=== PATIENT | male | born 1985 | race Caucasian/White ===

== ENCOUNTER 2017-01-26 13:44 | Inpatient (IN) | payer OTHER ==
--- NOTE | 2017-01-26 16:21 | PDOC ---
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 The patient additionally notes a right-sided headache throughout the whole head. He notes that his left arm began hurting at 7/10 and the left hand began tingling at 4 pm this Tuesday (two days ago) and has been fluctuating since that time. Yesterday, the right hand started tingling as well and he began having a right-sided headache, but these symptoms have since resolved. He initially took Advil for the arm pain but no other medications. He has never had these symptoms before. His additional recent symptoms are chills, mild dizziness, mild shortness of breath, and for the past few months he has been seeing light spots in his vision which are new for him. He denies any recent falls or injuries, difficulty walking or speaking , or bowel/bladder incontinence. Past History - Past Medical History Allergies/Adverse Reactions: Allergies Allergy/AdvReac Type Severity Reaction Status Date / Time shrimp Allergy Intermediate Swelling Verified 01/27/17 06:38 Home Medications: Ambulatory Orders Amlodipine Besylate [Norvasc -] 10 mg PO DAILY #30 tablet 01/28/17 Metoprolol Tartrate 25 mg PO BID #60 tablet 01/28/17 Other medical history: NONE - Psycho/Social/Smoking Cessation Hx Anxiety: No Suicidal Ideation: No Smoking History: Never smoked Hx Alcohol Use: No Drug/Substance Use Hx: No Substance Use Type: None Review of Systems - Review of Systems Constitutional: Yes: Chills. No: Fever, Unexplained wgt Loss HEENTM: Yes: Recent change in vision (past few months). No: Nose Congestion, Throat Pain Respiratory: Yes: Shortness of Breath (slightly more than normal). No: Cough Cardiac (ROS): No: Chest Pain, Palpitations ABD/GI: No: Constipated, Diarrhea, Nausea, Vomiting : No: Burning, Dysuria Musculoskeletal: Yes: Other (left arm pain). No: Back Pain, Neck Pain Integumentary: No: Bruising, Rash Neurological: Yes: Headache (right), Tingling, Dizziness, Other (no incontinence ). No: Numbness, Weakness, Unsteady Gait Endocrine: No: Unexplained Weight Gain, Unexplained Weight Loss *Physical Exam - Vital Signs Last Vital Signs Temp Pulse Resp BP Pulse Ox 106 H 20 164/125 100 01/26/17 13:45 01/26/17 13:45 01/26/17 13:45 01/26/17 13:45 - Physical Exam General Appearance: Yes: Nourished, Appropriately Dressed, Other (well- appearing Lao-speaking male who is conversive and appears comfortable, moving both arms normally, reclining in hospital bed). No: Apparent Distress HEENT: positive: EOMI, Normal Voice, Hearing Grossly Normal. negative: Scleral Icterus (R), Scleral Icterus (L), Nasal Congestion Neck: positive: Trachea midline, Supple. negative: Tender, Rigid Respiratory/Chest: positive: Lungs Clear, Normal Breath Sounds. negative: Respiratory Distress, Crackles, Rhonchi, Stridor, Wheezing Cardiovascular: positive: Regular Rhythm, Regular Rate. negative: Murmur Gastrointestinal/Abdominal: positive: Normal Bowel Sounds, Soft. negative: Tender, Organomegaly, Pulsatile Mass, Guarding Musculoskeletal: positive: Normal Inspection. negative: Decreased Range of Motion, Vertebral Tenderness Extremity: positive: Normal Capillary Refill, Normal Inspection, Normal Range of Motion. negative: Tender, Cyanosis Integumentary: positive: Normal Color, Dry, Warm. 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 negative: EOM Palsy, Facial Droop, Numbness Heart Score/ECG Review - History History: Slightly suspicious - Electrocardiogram EKG: Normal - Age Age: </= 45 - Risk Factors Based on the list above the patient has:: No risk factors known ED Treatment Course - LABORATORY CBC & Chemistry Diagram: 01/27/17 06:00 01/27/17 06:00 - RADIOLOGY Radiology Studies Ordered: 01/26/17 18:[address] without e/o acute intracranial pathology Medical Decision Making - Medical Decision Making 31 yo male with little recent medical care sent here to the ED for high BP, left arm pain, BUE tingling, right headache. Most likely this is essential HTN, less likely radiculopathy, CVA/TIA, DVT, thoracic outlet syndrome. Ordered is Head CT WO, CBCD, CMP, troponin. Laboratories are unremarkable except for 1+ protein in urine and BUN/Cr of 20/ 1.5. The patient may have TONI which could be attributable to unmanaged HTN. Head CT is unremarkable. Troponin is negative. 01/26/17 19:11 The patient is signed out to the oncoming team awaiting call from Dr. Liz. *DC/Admit/Observation/Transfer Diagnosis at time of Disposition: Hypertension Qualifiers: Qualified Code(s): I10 - Essential (primary) hypertension - Discharge Dispostion Disposition: HOME Condition at time of disposition: Stable Admit: No - Prescriptions
[2017-01-26 17:46] LABS: BASOPHIL 0.6 % (0-2.0); EOSINOPHIL 0.9 % (0-4.5); MCH 29.6 pg (25.7-33.7); MCHC 34.2 g/dl (32.0-35.9); MEAN CELL VOLUME 86.8 fl (80-96); MEAN PLT VOLUME 9.7 fl (7.5-11.1); NEUTROPHILS 77.8 % (42.8-82.8); PLATELET COUNT 170 K/MM3 (134-434); RDW 13.9 % (11.9-15.9); WHITE BLOOD COUNT 9.1 K/mm3 (4.0-10.0)
[2017-01-26] MEDS ORDERED: amLODIPine BESYLATE 5 MG TABLET (FP) PO ONE (18:05)
[2017-01-26] MEDS ORDERED: amLODIPine BESYLATE 5 MG TABLET (FP) ONE (18:14)
[2017-01-26 18:23] LABS: ALBUMIN 3.9 g/dl (3.4-5.0); ANION GAP 8 (8-16); CO2 28 mmol/L (21-32); CREATININE 1.5 mg/dL (0.7-1.3); GLUCOSE,RANDOM 91 mg/dL (74-106); MAGNESIUM 2.1 mg/dL (1.8-2.4); PHOSPHOROUS 2.6 mg/dL (2.5-4.9); SGOT/AST 22 U/L (15-37); SGPT/ALT 40 U/L (12-78)
[2017-01-26 18:27] LABS: ALK PHOS 101 U/L (45-117); BILIRUBIN,TOTAL 1.1 mg/dL (0.2-1.0); TOT PROT 7.7 g/dl (6.4-8.2); TROPONIN I < 0.02 ng/ml (0.00-0.05)
--- NOTE | 2017-01-26 19:39 | PDOC ---
Attending Attestation - Resident Resident Name: JessicaOrquidea - ED Attending Attestation I have performed the following: I have examined & evaluated the patient, The case was reviewed & discussed with the resident, I agree w/resident's findings & plan, Exceptions are as noted - HPI HPI: 01/26/17 19:38 31 M with no known PMH presents to ER with elevated BP. Pt was sent from cardiology clinic for persistently elevated BP, typically 150s to 160s systolic. Pt denies any chest pain but states that he occasionally gets SOB. Also endorses mild headache and paresthesias in both hands. Denies N/V. Denies cocaine or other substance abuse. 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 Pt with occasional SOB but normal EKG. - Labs - EKG - CTH 01/26/17 19:47 Labs notable for TONI with Cr 1.5 Fluids ordered pt to be admitted to hospitalist
[2017-01-26] MEDS ORDERED: SODIUM CHLORIDE 1,000 ML IV STA (19:46)
--- NOTE | 2017-01-26 19:54 | PDOC ---
*Physical Exam - Vital Signs Last Vital Signs Temp Pulse Resp BP Pulse Ox 79 18 160/104 99 01/26/17 18:48 01/26/17 18:48 01/26/17 18:48 01/26/17 18:48 - Physical Exam Comments: 01/26/17 21:39 HEAD: No signs of trauma, normocephalic, atraumatic EYES: PERRLA, EOMI, sclera anicteric, conjunctiva clear ENT: Auricles normal inspection, hearing grossly normal, nares patent, oropharynx clear without exudates. Moist mucosa NECK: Normal ROM, supple, no lymphadenopathy, JVD, or masses LUNGS: No distress, speaks full sentences, clear to auscultation bilaterally HEART: Regular rate and rhythm, normal S1 and S2, no murmurs, rubs or gallops, peripheral pulses normal and equal bilaterally. ABDOMEN: Soft, nontender, normoactive bowel sounds. No guarding, no rebound. No masses EXTREMITIES: Normal inspection, Normal range of motion, no edema. No clubbing or cyanosis. NEUROLOGICAL: Cranial nerves II through XII grossly intact. Normal speech, normal gait, no focal sensorimotor deficits SKIN: Warm, Dry, normal turgor, no rashes or lesions noted. ED Treatment Course - LABORATORY CBC & Chemistry Diagram: 01/26/17 17:22 01/26/17 17:22 - ADDITIONAL ORDERS Additional order review: Laboratory Results 01/26/17 17:22 Sodium 140 Potassium 3.9 Chloride 104 Carbon Dioxide 28 Anion Gap 8 BUN 20 H Creatinine 1.5 H Creat Clearance w eGFR 55.33 Random Glucose 91 Calcium 9.0 Phosphorus 2.6 Magnesium 2.1 Total Bilirubin 1.1 H AST 22 ALT 40 Alkaline Phosphatase 101 Troponin I < 0.02 Total Protein 7.7 Albumin 3.9 01/26/17 17:22 RBC 5.63 H MCV 86.8 MCHC 34.2 RDW 13.9 MPV 9.7 Neutrophils % 77.8 Lymphocytes % 16.6 Monocytes % 4.1 Eosinophils % 0.9 Basophils % 0.6 - Medications Given in the ED: ED Medications Discontinued Medications Generic Name Dose Route Start Last Admin Trade Name Freq PRN Reason Stop Dose Admin Amlodipine Besylate 5 mg 01/26/17 18:05 01/26/17 18:15 Norvasc - PO 08/30/17 18:06 5 mg ONCE ONE Administration Medical Decision Making - Medical Decision Making 01/26/17 21:40 31 yo M with h/o gastritis who presents with WHITT. Pt. reports new onset WHITT and left arm numbness/tingling, and pain. 24 hour duration of right sided WHITT and right arm parastehsias. LUE complaints within past 72 hours. No other associated complaints. Arrived to the ED with elevated BP 160's SBP. Physical exam beingn. Denies h/o drug use. Received handoff from Dr. Lopez. 01/26/17 21:40 ED Course: 01/26/17 21:45 CBC: Unremarkable CMP:BUN/Cr 20/1.5 CT HEAD: No acute intracranial pathology. 01/26/17 21:45 Admit to hospitalist hallie for TONI. *DC/Admit/Observation/Transfer Diagnosis at time of Disposition: Hypertension Qualifiers: Hypertension type: unspecified Qualified Code(s): I10 - Essential (primary) hypertension - Discharge Dispostion Admit: Yes
--- NOTE | 2017-01-26 21:40 | HP ---
CHIEF COMPLAINT: sent from clinic at [facility] for HTN, c/o left arm pain PCP: clinic HISTORY OF PRESENT ILLNESS: This is a 31 year old male with a past medical history of gastritis who presented to the ED from the clinic with left arm pain since Tuesday and elevated BP. He reports feeling a little better now. Only c/o headache. Pt reports that he has been taking an "all natural supplement from the internet" for his BP. ER course was notable for: (1) BP 164/125, given norvasc 5mg (2) CT head neg (3) Cr 1.5, unknown baseline Recent Travel: pt denies PAST MEDICAL HISTORY: Gastritis PAST SURGICAL HISTORY: pt denies Social History: Smoking: pt denies Alcohol: previous heavy drinker, quit a few months ago Drugs: pt denies Family History: mother alive, with HTN Maternal uncle with HTN father alive and well, no PMH Allergies No Known Allergies Allergy (Verified 01/26/17 13:49) HOME MEDICATIONS: 3 Medication Instructions Recorded NK [No Known Home Medication] 01/26/17 REVIEW OF SYSTEMS CONSTITUTIONAL: Absent: fever, chills, diaphoresis, generalized weakness, malaise, loss of appetite, weight change HEENT: Absent: rhinorrhea, nasal congestion, throat pain, throat swelling, difficulty swallowing, mouth swelling, ear pain, eye pain, visual changes CARDIOVASCULAR: Absent: chest pain, syncope, palpitations, irregular heart rate, lightheadedness , peripheral edema RESPIRATORY: Absent: cough, shortness of breath, dyspnea with exertion, orthopnea, wheezing, stridor, hemoptysis GASTROINTESTINAL: Absent: abdominal pain, abdominal distension, nausea, vomiting, diarrhea, constipation, melena, hematochezia GENITOURINARY: Absent: dysuria, frequency, urgency, hesitancy, hematuria, flank pain, genital pain MUSCULOSKELETAL: Present: left arm and left shoulder blade pain Absent: myalgia, arthralgia, joint swelling, back pain, neck pain SKIN: Absent: rash, itching, pallor HEMATOLOGIC/IMMUNOLOGIC: Absent: easy bleeding, easy bruising, lymphadenopathy, frequent infections ENDOCRINE: Absent: unexplained weight gain, unexplained weight loss, heat intolerance, cold intolerance NEUROLOGIC: Present: tingling in hands, headache Absent: focal weakness or paresthesias, dizziness, unsteady gait, seizure, mental status changes, bladder or bowel incontinence PSYCHIATRIC: Absent: anxiety, depression, suicidal or homicidal ideation, hallucinations. PHYSICAL EXAMINATION Vital Signs - 24 hr 3 01/26/17 01/26/17 01/26/17 13:45 18:48 21:02 Pulse Rate 106 H Pulse Rate [ 79 82 Apical] Respiratory 20 18 16 Rate Blood Pressure 164/125 Blood Pressure 160/104 168/102 [Arm] O2 Sat by Pulse 100 99 100 Oximetry (%) GENERAL: Awake, alert, and fully oriented, in no acute distress. HEAD: Normal with no signs of trauma. EYES: Pupils equal, round and reactive to light, extraocular movements intact, sclera anicteric, conjunctiva clear. No lid lag. EARS, NOSE, THROAT: Ears normal, nares patent, oropharynx clear without exudates. Moist mucous membranes. NECK: Normal range of motion, supple without lymphadenopathy, JVD, or masses. LUNGS: Breath sounds equal, clear to auscultation bilaterally. No wheezes, and no crackles. No accessory muscle use. HEART: Regular rate and rhythm, normal S1 and S2 without murmur, rub or gallop. ABDOMEN: Soft, nontender, not distended, normoactive bowel sounds, no guarding, no rebound, no masses. No hepatomegaly or splenomegaly. MUSCULOSKELETAL: Normal range of motion at all joints. No bony deformities or tenderness. No CVA tenderness. UPPER EXTREMITIES: 2+ pulses, warm, well-perfused. No cyanosis. No clubbing. No peripheral edema. LOWER EXTREMITIES: 2+ pulses, warm, well-perfused. No calf tenderness. No peripheral edema. NEUROLOGICAL: Cranial nerves II-XII intact. Normal speech. Normal gait. PSYCHIATRIC: Cooperative. Good eye contact. Appropriate mood and affect. SKIN: Warm, dry, normal turgor, no rashes or lesions noted, normal capillary refill. Laboratory Results - last 24 hr 3 01/26/17 01/26/17 17:22 17:22 WBC 9.1 RBC 5.63 H Hgb 16.7 Hct 48.8 MCV 86.8 MCH 29.6 MCHC 34.2 RDW 13.9 Plt Count 170 MPV 9.7 Neutrophils % 77.8 Lymphocytes % 16.6 Monocytes % 4.1 Eosinophils % 0.9 Basophils % 0.6 Sodium 140 Potassium 3.9 Chloride 104 Carbon Dioxide 28 Anion Gap 8 BUN 20 H Creatinine 1.5 H Creat Clearance w eGFR 55.33 Random Glucose 91 Calcium 9.0 Phosphorus 2.6 Magnesium 2.1 Total Bilirubin 1.1 H AST 22 ALT 40 Alkaline Phosphatase 101 Troponin I < 0.02 Total Protein 7.7 Albumin 3.9 ECG NSR, vent rate 78 QTC 424 flattening T waves in lead 3, no other ST/T changes Radiology Results Cranial CT without contrast Clinical information: headache Multiplanar imaging was performed. There is no CT evidence of intracranial hemorrhage. No extra-axial fluid collection is noted. There is no gross mass lesion. No discrete infarct is identified. The ventricles and cisterns appear unremarkable. No calvarial defect is seen. The partially imaged mastoid air cells and paranasal sinuses demonstrate no opacification. Impression: Negative exam. No discrete noncontrast CT abnormality is identified. Reported By: Kee Lockwood MD 01/26/17 7039 ASSESSMENT/PLAN: 31yM with PMH gastritis presented to ED with left arm and shoulder blade pain. Sent by clinic for HTN. Pt is admitted for further observation. HTN - start amlodipine, BP improved slightly with same. - if BP still elevated in AM, consider adding additional agent or increasing dose - lifestyle modifications dw patient including diet and exercise. Left arm/shoulder blade pain - troponin neg and as pain has been present x 4 days, highly unlikely ACS, will repeat troponin x 1 in am TONI - Cr 1.5. Unknown baseline. Likely due to uncontrolled HTN. - will obtain renal sono - u/a pending. - if cr persistently elevated will need outpatient renal f/u. DVT PPX - deferred, expected LOS <48h FEN - defer IVF, pt tolerating po - repeat bmp, mg, ph in am - low sodium diet Dispo: Pt currently requires inpatient monitoring of his emergent condition. Visit type - Emergency Visit Emergency Visit: Yes ED Registration Date: 01/26/17 Care time: The patient presented to the Emergency Department on the above date and was hospitalized for further evaluation of their emergent condition. - New Patient This patient is new to me today: Yes Date on this admission: 01/26/17 - Critical Care Critical Care patient: No
[2017-01-26 22:19] LABS: URINE APPEARANCE CLEAR; URINE BILIRUBIN NEGATIVE (NEGATIVE); URINE BLOOD NEGATIVE (NEGATIVE); URINE COLOR STRAW; URINE GLUCOSE (UA) NEGATIVE (NEGATIVE); URINE KETONE NEGATIVE (NEGATIVE); URINE LEUK ESTERASE NEGATIVE (NEGATIVE); URINE NITRITE NEGATIVE (NEGATIVE); URINE UROBILINOGEN NEGATIVE mg/dL (0.2-1.0)
[2017-01-26 22:36] LABS: URINE PROTEIN 2+ (NEGATIVE)
[2017-01-26 22:39] LABS: URINE RBC <1 /hpf (0-3); URINE WBC 1 /hpf (3-5)
[2017-01-27 06:49] VITALS: BMI 27.3
[2017-01-27 07:13] LABS: BASOPHIL 0.7 % (0-2.0); EOSINOPHIL 4.1 % (0-4.5); MCH 29.7 pg (25.7-33.7); MCHC 33.6 g/dl (32.0-35.9); MEAN CELL VOLUME 88.1 fl (80-96); MEAN PLT VOLUME 9.7 fl (7.5-11.1); NEUTROPHILS 60.1 % (42.8-82.8); PLATELET COUNT 156 K/MM3 (134-434); RDW 13.6 % (11.9-15.9); WHITE BLOOD COUNT 8.9 K/mm3 (4.0-10.0)
[2017-01-27 07:34] LABS: ANION GAP 9 (8-16); CALCIUM 8.9 mg/dL (8.5-10.1); CO2 26 mmol/L (21-32); CREATININE 1.5 mg/dL (0.7-1.3); GLUCOSE,RANDOM 86 mg/dL (74-106); MAGNESIUM 2.2 mg/dL (1.8-2.4); PHOSPHOROUS 2.9 mg/dL (2.5-4.9)
[2017-01-27 07:40] LABS: CPK 151 IU/L (39-308); TROPONIN I < 0.02 ng/ml (0.00-0.05)
--- NOTE | 2017-01-27 08:33 | CON.CARD ---
Cardiology Consult (text) - Consultation Consultation Note: CC: Admitted from my office for HTN, 160/110 and headaches HPI: 31 M with no PMH, non-smoker who made an appointment to see me in office yesterday concerned about his BP. He stated his BP has been elevated and he had been experiencing headaches. Two days ago he experienced tingling and transient numbness of his left hand. Denied chest pain, SOB, palps, PND, orthopnea. Neurologic deficits were resolved. MEDS: None ALL: shrimp, no home meds. No suppliments FH: mother with HTN Physical Exam BP: 140/95 S1-2. RRR. No murmurs Chest: Clear b/l Abd: soft, NT Ext: no edema Labs: reviewed, significant for creatinine 1.5 ECG: NSR 78bpm, LAE. Head CT: No acute pathology. IMP: Chronic, uncontrolled HTN CKD REC: 1. Increase Amlodipine to 10mg daily with hold parameters 2. Renal consult. If BP remains improved, can likely discharge later today with Rx for Amlodipine and close outpatient f/u. Will hold on BLAS until creatinine baseline established.
[2017-01-27] MEDS ORDERED: amLODIPine BESYLATE 10 MG TABLET (FP) PO SCH (10:00)
[2017-01-27] MEDS ORDERED: amLODIPine BESYLATE 5 MG TABLET (FP) PO SCH (10:00)
--- NOTE | 2017-01-27 11:11 | EKG ---
Test Reason : Blood Pressure : / mmHG Vent. Rate : 078 BPM Atrial Rate : 078 BPM P-R Int : 146 ms QRS Dur : 076 ms QT Int : 372 ms P-R-T Axes : 054 076 034 degrees QTc Int : 424 ms NORMAL SINUS RHYTHM POSSIBLE LEFT ATRIAL ENLARGEMENT BORDERLINE ECG NO PREVIOUS ECGS AVAILABLE Confirmed by CJ WEBB, LC ([id number]) on 01/27/2017 11:11:18 AM Referred By: Confirmed By:LC CORONA MD
--- NOTE | 2017-01-27 15:44 | EKG ---
Test Reason : Blood Pressure : / mmHG Vent. Rate : 111 BPM Atrial Rate : 111 BPM P-R Int : 140 ms QRS Dur : 076 ms QT Int : 318 ms P-R-T Axes : 054 096 039 degrees QTc Int : 432 ms SINUS TACHYCARDIA RIGHTWARD AXIS BORDERLINE ECG WHEN COMPARED WITH ECG OF 26-JAN-2017 18:40, NONSPECIFIC T WAVE ABNORMALITY NO LONGER EVIDENT IN ANTERIOR LEADS Confirmed by CJ WEBB, LC ([id number]) on 01/27/2017 3:44:38 PM Referred By: NASH LANGLEY Confirmed By:LC CORONA MD
--- NOTE | 2017-01-27 16:54 | CONSULT ---
Consult Consult Specialty:: Nephrology Reason for Consultation:: CKD - History of Present Illness Chief Complaint: sent in for HTN History of Present Illness: Pt is a 31 year old male with no past medical history. He says he went to see cardio as he felt his blood pressure was elevated. He was found to be hypertensive and sent in to the hospital. He says he had headaches and that triggered him to think of his blood pressure. He denies chest pain. He was found to have elevated creatinine and I was called to see him. He says he feels anxious. He denies dysuria or hematuria. He says he has an uncle that has kidney disease but could not elaborate more. He denies nsaid use. - History Source History Provided By: Patient - Past Medical History Cardio/Vascular: Yes: HTN - Alcohol/Substance Use Hx Alcohol Use: No - Smoking History Smoking history: Never smoked Home Medications - Allergies Allergies/Adverse Reactions: Allergies Allergy/AdvReac Type Severity Reaction Status Date / Time shrimp Allergy Intermediate Swelling Verified 01/27/17 06:38 - Home Medications Home Medications: Ambulatory Orders NK [No Known Home Medication] 01/26/17 Family Disease History - Family Disease History Other Family History: uncle has kidney disease Review of Systems - Review of Systems Constitutional: reports: No Symptoms, Malaise Eyes: reports: No Symptoms HENT: reports: No Symptoms Neck: reports: No Symptoms Cardiovascular: reports: No Symptoms Respiratory: reports: No Symptoms Gastrointestinal: reports: No Symptoms Genitourinary: reports: No Symptoms Musculoskeletal: reports: No Symptoms Neurological: reports: Headache Endocrine: reports: Increased Thirst Hematology/Lymphatic: reports: No Symptoms Psychiatric: reports: Anxiety Physical Exam Vital Signs: Vital Signs Temperature 99.4 F 01/27/17 14:54 Pulse Rate 119 H 01/27/17 14:39 Respiratory Rate 18 01/27/17 14:57 Blood Pressure 157/96 01/27/17 14:39 O2 Sat by Pulse Oximetry (%) 100 01/27/17 14:57 Constitutional: Yes: Anxious Eyes: Yes: Conjunctiva Clear HENT: Yes: Atraumatic Neck: Yes: Supple Cardiovascular: Yes: S1, S2 Respiratory: Yes: CTA Bilaterally Gastrointestinal: Yes: Normal Bowel Sounds, Soft Renal/: Yes: WNL Musculoskeletal: Yes: WNL Edema: No Neurological: Yes: Oriented Psychiatric: Yes: Oriented Labs: CBC, BMP 01/27/17 06:00 01/27/17 06:00 Laboratory Tests 01/26/17 01/26/17 01/26/17 17:22 17:22 21:54 WBC 9.1 Hgb 16.7 Plt Count 170 Sodium Potassium Chloride Carbon Dioxide Anion Gap BUN 20 H Creatinine 1.5 H Urine Color Straw Urine Appearance Clear Urine pH 6.0 Ur Specific [place] Pending Urine Protein 2+ H Urine Glucose (UA) Negative Urine Ketones Negative Urine Blood Negative Urine Nitrite Negative Urine Bilirubin Negative Urine Urobilinogen Negative Ur Leukocyte Esterase Negative Urine RBC <1 Urine WBC 1 01/27/17 01/27/17 06:00 06:00 WBC 8.9 Hgb 16.7 Plt Count 156 Sodium 142 Potassium 3.8 Chloride 107 Carbon Dioxide 26 Anion Gap 9 BUN 23 H Creatinine 1.5 H Urine Color Urine Appearance Urine pH Ur Specific [place] Urine Protein Urine Glucose (UA) Urine Ketones Urine Blood Urine Nitrite Urine Bilirubin Urine Urobilinogen Ur Leukocyte Esterase Urine RBC Urine WBC Imaging - Results Chest X-ray: Report Reviewed Ultrasound: Report Reviewed (small and echogenic kidneys) Problem List - Problems (1) Hypertension Code(s): I10 - ESSENTIAL (PRIMARY) HYPERTENSION Qualifiers: Hypertension type: unspecified Qualified Code(s): I10 - Essential ( primary) hypertension (2) CKD (chronic kidney disease) Code(s): N18.9 - CHRONIC KIDNEY DISEASE, UNSPECIFIED Assessment/Plan Current Medications Generic Name Dose Route Start Last Admin Trade Name Freq PRN Reason Stop Dose Admin Amlodipine Besylate 10 mg 01/27/17 10:00 01/27/17 11:29 Norvasc - PO 10 mg DAILY LIDIA Administration Impression 1. HTN 2. CKD based on ultrasound 3. proteinuria Plan - pt has a ua that is positive for protein. He also has echogenic kidneys on renal ultrasoun. Pt will need a CKD workup, which can be done as outpt. He will likely also need a biopsy. 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
--- NOTE | 2017-01-27 18:19 | CON.NEURO ---
Consult - History of Present Illness History of Present Illness: 31 year old male with a past medical history of gastritis who presented to the ED from the clinic with left arm pain since Tuesday and elevated BP. He reports feeling a little better now. Only c/o headache. Pt reports that he has been taking an "all natural supplement from the internet" for his BP. brief numbness of his legs x 3 min today, but main issue appaers to be left arm pian --though this is also better team ARBOLEDA fluctuating BP CT HD (-); - History Source History Provided By: Patient, Family Member - Past Medical History Cardio/Vascular: Yes: HTN - Alcohol/Substance Use Hx Alcohol Use: No - Smoking History Smoking history: Never smoked Home Medications - Allergies Allergies/Adverse Reactions: Allergies Allergy/AdvReac Type Severity Reaction Status Date / Time shrimp Allergy Intermediate Swelling Verified 01/27/17 06:38 - Home Medications Home Medications: Ambulatory Orders NK [No Known Home Medication] 01/26/17 Family Disease History - Family Disease History Other Family History: uncle has kidney disease Physical Exam-Neuro Vital Signs: Vital Signs Temperature 99.4 F 01/27/17 14:54 Pulse Rate 119 H 01/27/17 14:39 Respiratory Rate 18 01/27/17 14:57 Blood Pressure 157/96 01/27/17 14:39 O2 Sat by Pulse Oximetry (%) 100 01/27/17 14:57 Constitutional: Yes: Well Nourished, No Distress Labs: Vital Signs CBCD WBC 8.9 K/mm3 (4.0-10.0) 01/27/17 06:00 RBC 5.64 M/mm3 (4.00-5.60) H 01/27/17 06:00 Hgb 16.7 GM/dL (11.7-16.9) 01/27/17 06:00 Hct 49.7 % (35.4-49) H 01/27/17 06:00 MCV 88.1 fl (80-96) 01/27/17 06:00 MCHC 33.6 g/dl (32.0-35.9) 01/27/17 06:00 RDW 13.6 % (11.9-15.9) 01/27/17 06:00 Plt Count 156 K/MM3 (134-434) 01/27/17 06:00 MPV 9.7 fl (7.5-11.1) 01/27/17 06:00 CMP Sodium 142 mmol/L (136-145) 01/27/17 06:00 Potassium 3.8 mmol/L (3.5-5.1) 01/27/17 06:00 Chloride 107 mmol/L (98-107) 01/27/17 06:00 Carbon Dioxide 26 mmol/L (21-32) 01/27/17 06:00 Anion Gap 9 (8-16) 01/27/17 06:00 BUN 23 mg/dL (7-18) H 01/27/17 06:00 Creatinine 1.5 mg/dL (0.7-1.3) H 01/27/17 06:00 Creat Clearance w eGFR 55.33 (>60) 01/26/17 17:22 Calcium 8.9 mg/dL (8.5-10.1) 01/27/17 06:00 Total Bilirubin 1.1 mg/dL (0.2-1.0) H 01/26/17 17:22 AST 22 U/L (15-37) 01/26/17 17:22 ALT 40 U/L (12-78) 01/26/17 17:22 Alkaline Phosphatase 101 U/L (45-117) 01/26/17 17:22 Total Protein 7.7 g/dl (6.4-8.2) 01/26/17 17:22 Albumin 3.9 g/dl (3.4-5.0) 01/26/17 17:22 - Neuro Exam Level Of Consciousness: Yes: Alert, Oriented to Person (EOMI, no facial, motor no focal weakness, sesn intact PT, reflexes symmetric ) Problem List - Problems (1) Hypertension Code(s): I10 - ESSENTIAL (PRIMARY) HYPERTENSION Qualifiers: Hypertension type: unspecified Qualified Code(s): I10 - Essential ( primary) hypertension (2) Cervical radicular pain Code(s): M54.12 - RADICULOPATHY, CERVICAL REGION Assessment/Plan uncontrolled hypertension being ARBOLEDA by primary team left sided neck strain and numbness may be cardiac vs cervical radiculopathy-- can get MRI C spine while in house no evidence of a myelopathy or a progressive neuropathy Dr Haider
--- NOTE | 2017-01-27 18:51 | PN ---
Physical Exam: SUBJECTIVE: Patient seen and examined. He complaints of head ache, neck tension , RUE tingling. He had bi lateral lower ext tingling early briefly. OBJECTIVE: Vital Signs Period Temp Pulse Resp BP Sys/Etienne Pulse Ox Last 24 Hr 98.1 F 113 18 155/96 PE Neuro: alert, awake, cn 2-12intact Pulm: CTAB CV: s1 s2 tachycardia Abd s nt nd + bs Ext: warm no le edema Active Medications Generic Name Dose Route Start Last Admin Trade Name Freq PRN Reason Stop Dose Admin Metoprolol Tartrate 25 mg 01/27/17 18:15 Lopressor - PO BID LIDIA Assessment: 31 year old male with PMH gastritis presented to ED with left arm and shoulder blade pain. Sent by clinic for HTN. Pt is admitted for further observation. Plan: 1. HTN - Stop novasc - Start lopressor 25mg BID first dose now - Monitor BP, goal SPB 140 - CT H neg 2. Tachycardia - EKG negative for ischemia or A fib - Start lopressor as above - No fever or leukocytosis noted, low suspicion for infection possible pheo? 3. CKD - Renal US c/w CKD - Renal work up initiated - Obtain Renal artery US r/o pheo 4. Extremity tingling - Cardiac in nature d/t HTN vs cervical radiculopathy - Can get MRI C spine while in house - Per neuro no evidence of a myelopathy or a progressive neuropathy 5. DVT PPX - deferred, expected LOS <48h Visit type - Emergency Visit Emergency Visit: Yes ED Registration Date: 01/27/17 Care time: The patient presented to the Emergency Department on the above date and was hospitalized for further evaluation of their emergent condition. - New Patient This patient is new to me today: Yes Date on this admission: 01/27/17 - Critical Care Critical Care patient: No
[2017-01-27] MEDS: METOPROLOL TARTRATE 25 MG TABLET (FP) PO SCH ×2 (19:43→21:56)
[2017-01-27 21:11] LABS: URINE CREATININE 57.4 mg/dL (20-370)
--- NOTE | 2017-01-28 08:43 | PN ---
Progress Note (short form) - Note Progress Note: Selected Entries 01/28/17 06:00 Temperature 98.7 F Pulse Rate 84 Blood Pressure 127/72 Feels "fine" Yesterday had facial flushing and tachycardia raising ? of secondary cause HTN: ? Pheo Appreciate renal and neuro input. BP and heart rate improved with addition metoprolol. S1-2. RRR. Chest: Clear bilaterally Abd: soft, no bruit Ext: No edema IMP: Chronic uncontrolled HTN- now improved. Proteinuria and CKD REC: Continue Amlodipine and Metoprolol. Needs renal and endocrine w/u as outpatient: r/o pheo. Check TSH. Need for obtaining insurance and close clinical f/u d/w patient in detail in [place]. He understands and will f/u as outpatient.
[2017-01-28] MEDS: METOPROLOL TARTRATE 25 MG TABLET (FP) PO SCH (09:41)
[2017-01-28] MEDS ORDERED: amLODIPine BESYLATE 10 MG TABLET (FP) PO SCH (11:30)
[2017-01-28 14:01] VITALS: BP 141/93; PULSE 85; TEMP 98
--- NOTE | 2017-01-28 15:07 | DS ---
Physical Exam: SUBJECTIVE: Patient seen and examined. He is feeling much better today, his arm and leg tingling has left along with his neck tension and head jeb. No signs of flushed face, diaphoresis, tachycardia OBJECTIVE: Vital Signs Period Temp Pulse Resp BP Sys/Etienne Pulse Ox Last 24 Hr 98 F-98.7 F 73-113 16-18 127-155/72-103 100-100 Pe Neuro: alert, awake, cn 2-12intact Pulm: CTAB CV: s1 s2 rrr no mrg Abd: s nt nd + bs Ext: Warm, no le edema Laboratory Results - last 24 hr 01/27/17 01/27/17 01/28/17 18:10 18:10 12:15 Free T4 1.25 H U Random Total Protein 134 H Ur Random Sodium 77 Ur Random Potassium 13.1 Ur Random Chloride 74 Urine Creatinine 57.4 Protein/Creatinin Ratio 2.33 HOSPITAL COURSE: Date of Admission:01/27/17 Date of Discharge: 01/28/17 Minutes to complete discharge: 36 Discharge Summary Reason For Visit: HYPERTENSION Current Active Problems CKD (chronic kidney disease) (Acute) Cervical radicular pain (Acute) Hypertension (Acute) Hospital Course: Initial Hospital Course: Briefly, this 31 year old male with a past medical history of gastritis presented to the ED from the Dr. Joyner office with elevated BP. Pt reported feeling neck, jaw head tension and bi lateral arm tingling worse in R arm. Subsequent Hospital Course/Progress Note/Discharge Summary by plan: Plan: 1. HTN Emergency - Improved - Amlodipine 10mg daily - Lopressor 25mg BID 2. CKD - Complete renal work up to be completed in office - appt made for pt 02/02 @ [address] English, pt aware 3. r/o pheo - Pheo work up to be completed in office - On discharge pt no longer flushed, diaphoretic, tachycardic, improved after receiving lopressor previous evening 4. Extremity tingling - Concern for GBS less likely, per neuro no evidence of a myelopathy or a progressive neuropathy - Cardiac in nature d/t HTN vs cervical radiculopathy, tingling resolved - MRI C spine ordered, can f/u as outpt- pcp referral made 5. Elevated TSH - T4 elevated, likely subclinical hypothyroidism Dispo: - Home with above BP meds, pcp referral made and renal outpt followup appt scheduled - pt aware and agrees to above plan, discussed in greenlandic with social media editor Condition: Stable - Instructions Diet, Activity, Other Instructions: Please return to the ED for any new, persistent, or worsening symptoms. Follow up with you PCP in 1 week (referral enclosed) Take medications for blood pressure regularly. You need to follow up with kidney doctor Dr. English next Friday 02/02 2:30pm (address is enclosed) Referrals: Noemi Verma MD [Staff Physician] - Joanna Coto MD [Staff Physician] - Dimple English MD [Staff Physician] - 1 Week (02/02 2:30pm ) Disposition: HOME - Home Medications Comprehensive Discharge Medication List: Ambulatory Orders Amlodipine Besylate [Norvasc -] 10 mg PO DAILY #30 tablet 01/28/17 Metoprolol Tartrate 25 mg PO BID #60 tablet 01/28/17 This patient is new to me today: No Emergency Visit: Yes ED Registration Date: 01/27/17 Care time: The patient presented to the Emergency Department on the above date and was hospitalized for further evaluation of their emergent condition. Critical Care patient: No - Discharge Referral Referred to [facility] No
== END 2017-01-28 15:36 | disposition home or self-care (01) | DRG 199 ==
LOC: JER 13:44 → INTOOBSV 19:54 → JERBED 19:54 → J7W 22:36 → OBSVTOIN 01-27 17:07
PROVIDERS: ADMIT Internal Medicine; ATTEND Nurse Practitioner Acute Care
DX: I16.0 Hypertensive urgency (principal); N17.9 Acute kidney failure, unspecified; I12.9 Hypertensive chronic kidney disease with stage 1 through stage 4 chronic kidney disease, or unspecified chronic kidney disease; N18.9 Chronic kidney disease, unspecified; M25.512 Pain in left shoulder; M54.12 Radiculopathy, cervical region; R20.2 Paresthesia of skin; E02 Subclinical iodine-deficiency hypothyroidism; R00.0 Tachycardia, unspecified
CPT/HCPCS: 36415; 70450-TC; 76775-TC; 80048; 80053; 81003; 81015; 82436; 82553; 82570; 83735; 84100; 84133; 84156; 84300; 84439; 84443; 84484; 85025; 93005; 93010; 93306-TC; 99282-25; G0378

== ENCOUNTER 2023-06-10 22:11 | Emergency (ER) | payer OTHER ==
[2023-06-10 22:17] VITALS: RESP 18; BMI 27.6
[2023-06-10] MEDS ORDERED: ACETAMINOPHEN 1000 MG/100 ML BAG IVPB ONE (23:10)
[2023-06-10] MEDS ORDERED: ACETAMINOPHEN INJECTION 100 ML IVPB ONE (23:33)
[2023-06-10 23:58] LABS: BASO % 0.5 % (0-2.0); EOS % 2.9 % (0-4.5); HEMATOCRIT 45.2 % (35.4-49); HEMOGLOBIN 14.8 GM/dL (11.7-16.9); LYMPH % 18.1 % (8-40); MCH 28.8 pg (25.7-33.7); MCHC 32.9 g/dl (32.0-35.9); MEAN CELL VOLUME 87.8 fl (80-96); MEAN PLT VOLUME 9.7 fl (7.5-11.1); MONO % 6.5 % (3.8-10.2); PLATELET COUNT 165 10^3/uL (134-434); RBC 5.15 M/mm3 (4.00-5.60); RDW 14.8 % (11.9-15.9); WHITE BLOOD COUNT 10.3 K/mm3 (4.0-10.0)
[2023-06-11 00:04] LABS: INR 0.99 (0.83-1.09); PROTHROMBIN TIME (PATIENT) 11.5 SEC (9.7-13.0)
[2023-06-11 00:07] LABS: ACTIVATED PTT 33.8 SECONDS (25.2-36.5)
[2023-06-11 00:22] LABS: POTASSIUM 4.2 mmol/L (3.5-5.1)
[2023-06-11 00:25] LABS: CALCIUM 9.6 mg/dL (8.5-10.1)
[2023-06-11 00:26] LABS: ALBUMIN 3.8 g/dl (3.4-5.0); BLOOD UREA NITROGEN 36.8 mg/dL (7-18); MAGNESIUM 2.2 mg/dL (1.8-2.4)
[2023-06-11 00:29] LABS: CREATININE 1.7 mg/dL (0.55-1.3); PHOSPHOROUS 2.2 mg/dL (2.5-4.9)
[2023-06-11 00:30] LABS: BILIRUBIN,TOTAL 0.3 mg/dL (0.2-1); TOT PROT 7.8 g/dl (6.4-8.2)
[2023-06-11] MEDS ORDERED: NAPH,MB-DB/K PH,MBDB POWDER PACKET PO ONE (00:58)
[2023-06-11] MEDS ORDERED: NAPH,MB-DB/K PH,MBDB POWDER PACKET ONE (01:23)
[2023-06-11] MEDS ORDERED: LIDOCAINE 5% TOPICAL PATCH TP ONE (01:41)
[2023-06-11] MEDS ORDERED: LIDOCAINE 4% PATCH TP ONE ×2 (01:46→01:48)
[2023-06-11 03:02] VITALS: BP 128/78; PULSE 78; TEMP 98.1
[2023-06-11] MEDS ORDERED: LIDOCAINE PATCH REMOVAL MC SCH ×2 (22:00)
== END 2023-06-11 03:03 | disposition home or self-care (01) ==
LOC: JER 22:11
PROC: 3E033NZ Introduction of Analgesics, Hypnotics, Sedatives into Peripheral Vein, Percutaneous Approach (ICD-10-PCS; principal; 2023-06-10)
DX: R07.9 Chest pain, unspecified (principal); R00.2 Palpitations; R61 Generalized hyperhidrosis; X50.0XXA Overexertion from strenuous movement or load, initial encounter; Z20.822 Contact with and (suspected) exposure to COVID-19
CPT/HCPCS: 0241U-QW; 36415; 71045-TC-FY; 80053; 83735; 84100; 84484; 85025; 85610; 85730; 93005; 93010; 99285-25